=== PATIENT | female | born 1985 | race Caucasian/White ===

== ENCOUNTER 2018-10-18 14:28 | Emergency (ER) | payer OTHER, MEDICAID ==
[~2018-10-18] VITALS: Ht 167.6 cm; Wt 58.5 kg
[2018-10-18 14:34] VITALS: BP 118/89
[2018-10-18] MEDS ORDERED: GABAPENTIN 100100 MG PO (14:38)
[2018-10-18] MEDS ORDERED: VISTARIL 25 MG25 M1 PO (14:38)
[2018-10-18] MEDS ORDERED: KEFLEX500 M1 PO (14:58)
== END 2018-10-18 15:10 | disposition home or self-care (01) ==
LOC: M.ERS 14:28
DX: S61.511D Laceration without foreign body of right wrist, subsequent encounter (principal); F17.200 Nicotine dependence, unspecified, uncomplicated; F41.9 Anxiety disorder, unspecified; Z88.1 Allergy status to other antibiotic agents; Z88.8 Allergy status to other drugs, medicaments and biological substances; W25.XXXD Contact with sharp glass, subsequent encounter